=== PATIENT | male | born 1965 | race Caucasian/White ===

== ENCOUNTER → 2016-05-15 | Outpatient (REF) | payer OTHER | LOC: M SFHCLERA 15:50 | PROVIDERS: ATTEND Physician Assistant | DX: J86.9 Pyothorax without fistula (principal) ==

== ENCOUNTER → 2020-06-05 | Outpatient (CLI) | payer OTHER ==
[~2020-06-05] MED LIST: LISI-538; ROSU40TA4
== END ==
LOC: M LABSMTC 09:49
PROVIDERS: ATTEND Anesthesiology
DX: Z01.812 Encounter for preprocedural laboratory examination (principal); Z20.822 Contact with and (suspected) exposure to COVID-19

== ENCOUNTER 2020-06-10 09:47 | Day surgery (SDC) | payer OTHER ==
[~2020-06-10] VITALS: Ht 175.3 cm; Wt 96.6 kg
[~2020-06-10 09:47] MED LIST changes: +LIDOCAINE 2% 100MG/5ML SDV (FOR ANES.) As Ordered ONE; -LISI-538; +LISI20TA33; +NS 1,000 ML IV ONE; +propofoL 500 MG/50 ML VIAL As Ordered ONE
--- OUTSIDE RECORDS SUMMARY | 2020-06-10 09:52 | CCD | Continuity of Care Document ---
Author Author Xander RIGGINS M.D. Organization Unknown Address [address] [place] [address] Phone [phone] Care Team Providers Care Radiologist Diagnostic Name Role Phone Niranjan Sigala AUTM [phone] Problems Active Problems Provider Date Chronic neck pain Daly Riggins M.D. Onset: 06/01/2020 Cervical radiculopathy Daly Riggins M.D. Onset: 06/01/2020 Carpal tunnel syndrome Daly Riggins M.D. Onset: 06/01/2020 Social History Type Date Description Comments Sex Unknown Tobacco Use Start: Unknown Patient has never smoked Allergies, Adverse Reactions, Alerts Active Allergies Reaction Severity Comments Date Radioactive Iodine Medications Active Medications SIG Qnty Indications Ordering Provide r Date Tylenol 8 Hour 650mg Tablets ER Daly Riggins M.D. 06/01/2020 Immunizations Description No Information Available Vital Signs Date Vital Result Comment 06/02/2020 8:24am BP Systolic 120 mmHg BP Diastolic 80 mmHg Heart Rate 72 /min Height 69 inches 5'9" Weight 212.00 lb BMI (Body Mass Index) 31.3 kg/m2 [place] Body Weight 160 lb Results Description No Information Available Procedures Description No Information Available Medical Devices Description No Information Available Encounters Description No Information Available Assessments Description No Information Available Plan of Treatment No Information Available Functional Status Description No Information Available Mental Status Description No Information Available Referrals Description No Information Available
--- OUTSIDE RECORDS SUMMARY | 2020-06-10 09:52 | CCD | Continuity of Care Document ---
Author Author Xander BRADLEY Organization Unknown Address [address] [place] [address] Phone [phone] Care Team Providers Care Program Writer Name Role Phone Randall Colon MD [facility] [phone] Problems Active Problems Provider Date Anemia Eyal Bradley M.D. Onset: 05/26/19 21 Social History Type Date Description Comments Sex Unknown ETOH Use Occasionally Tobacco Use Start: Unknown Patient has never smoked Allergies, Adverse Reactions, Alerts Description No Known Drug Allergies Medications Active Medications SIG Qnty Indications Ordering Provide r Date Suprep Bowel Prep Kit 17.5-3.13-1.6GM/177ML Solution use as directed 354ml Eyal Bradley M.D. 05/26/2020 Rosuvastatin Calcium 40mg Tablets Unknown Lisinopril 20mg Tablets Unknown Osteo Bi-Flex One Per Day Tablets Unknown Multiple Vitamin Tablets Unknown Immunizations Description No Information Available Vital Signs Date Vital Result Comment 05/26/2020 11:02am Height 69 inches 5'9" Weight 217.00 lb BP Systolic 139 mmHg BP Diastolic 87 mmHg Heart Rate 62 /min BMI (Body Mass Index) 32.0 kg/m2 Weight 98.431 kg Body Temperature 97.2 F Results Description No Information Available Procedures Description No Information Available Medical Devices Description No Information Available Encounters Type Date Location Provider Dx Diagnosis Office Visit 05/26/2020 10:15a Main Office Eyal Bradley M.D. Z 12.11 Encounter for screening for malignant neoplasm of colon D64.9 Anemia, unspecified Assessments Date Code Description Provider 05/26/2020 Z12.11 Screening for malignant neoplasm of colon Eyal Bradley M.D. 05/26/2020 D64.9 Anemia Eyal zheng M.D. Plan of Treatment Future Appointment(s):* 06/10/2020 9:00 am - Eyal Bradley M.D. at Main Office * 06/03/2020 6:30 am - [facility] at Main Office 05/26/2020 - Eyal Bradley M.D.* Z12.11 Screening for malignant neoplasm of colon* Comments:* 54 yo wm who presents for a colonoscopy/egd for anemia/screening. No c/o abdominal pain, weight loss, change in bowel habits, or rectal bleeding. No family h/o colon cancer. No h/o chest pain, or sob. Plan:1.Schedule patient for a colonoscopy + egd.2.Informed consent given to the patient.3.Pt. advised to stop aspirin,plavix, and anticoagulants at least 3 to 7 days prior to the procedure. * D64.9 Anemia* Comments:* As above. Functional Status Description No Information Available Mental Status Description No Information Available Referrals Refer to Dr Reason for Referral Status Appt Date Eyal Bradley M.D. Created [address] [place] [address] [phone] Eyal Bradley M.D. Created [address] [place] [address] [phone]
--- OUTSIDE RECORDS SUMMARY | 2020-06-10 09:52 | CCD ---
Author Author [facility] Organization [facility] Address Unknown Phone Unavailable Care Team Providers Care Packaging Engineer Name Role Phone Carmen Bradley MD Unavailable Unavailable Carmen Bradley MD Unavailable Unavailable Carmen Bradley MD Unavailable Unavailable Carmen Bradley MD Unavailable Unavailable Carmen Bradley MD Unavailable Unavailable Carmen Bradley MD Unavailable Unavailable Carmen Bradley MD Unavailable Unavailable Carmen Bradley MD Unavailable Unavailable Carmen Bradley MD Unavailable Unavailable Carmen Bradley MD Unavailable Unavailable Carmen Bradley MD Unavailable Unavailable Carmen Bradley MD Unavailable Unavailable Carmen Bradley MD Unavailable Unavailable Carmen Bradley MD Unavailable Unavailable Carmen Bradley MD Unavailable Unavailable Carmen Bradley MD Unavailable Unavailable Carmen Bradley MD Unavailable Unavailable Carmen Bradley MD Unavailable Unavailable Carmen Bradley MD Unavailable Unavailable Carmen Bradley MD Unavailable Unavailable Carmen Bradley MD Unavailable Unavailable Carmen Bradley MD Unavailable Unavailable Carmen Bradley MD Unavailable Unavailable Carmen Bradley MD Unavailable Unavailable Carmen Bradley MD Unavailable Unavailable Carmen Bradley MD Unavailable Unavailable Carmen Bradley MD Unavailable Unavailable Carmen Bradley MD Unavailable Unavailable Carmen Bradley MD Unavailable Unavailable Carmen Bradley MD Unavailable Unavailable Carmen Bradley MD Unavailable Unavailable Carmen Bradley MD Unavailable Unavailable Carmen Bradley MD Unavailable Unavailable Mirna, S Eyal BRIAN Unavailable Unavailable Mirna, S Eyal BRIAN Unavailable Unavailable Mirna, S Eyal BRIAN Unavailable Unavailable Mirna, S Eyal BRIAN Unavailable Unavailable Mirna, S Eyal BRIAN Unavailable Unavailable Mirna, S Eyal BRIAN Unavailable Unavailable Mirna, S Eyal BRIAN Unavailable Unavailable Mirna, S Eyal BRIAN Unavailable Unavailable Mirna, S Eyal BRIAN Unavailable Unavailable Mirna, S Eyal BRIAN Unavailable Unavailable Mirna, S Eyal BRIAN Unavailable Unavailable Mirna, S Eyal BRIAN Unavailable Unavailable Mirna, S Eyal BRIAN Unavailable Unavailable Mirna, S Eyal BRIAN Unavailable Unavailable Mirna, S Eyal BRIAN Unavailable Unavailable Mirna, S Eyal BRIAN Unavailable Unavailable Alexis, Paul Wiley MD Unavailable Unavailable Alexis, Paul Wiley MD Unavailable Unavailable Alexis, Paul Wiley MD Unavailable Unavailable AlexisPaul bernal MD Unavailable Unavailable Paul Espinoza MD Unavailable Unavailable Paul Espinoza MD Unavailable Unavailable Paul Espinoza MD Unavailable Unavailable AlexisPaul bernal MD Unavailable Unavailable AlexisPaul bernal MD Unavailable Unavailable AlexisPaul bernal MD Unavailable Unavailable AlexisPaul bernal MD Unavailable Unavailable AlexisPaul bernal MD Unavailable Unavailable AlexisPaul bernal MD Unavailable Unavailable AlexisPaul bernal MD Unavailable Unavailable AlexisPaul bernal MD Unavailable Unavailable AlexisPaul bernal MD Unavailable Unavailable AlexisPaul bernal MD Unavailable Unavailable AlexisPaul bernal MD Unavailable Unavailable AlexisPaul bernal MD Unavailable Unavailable AlexisPaul bernal MD Unavailable Unavailable AlexisPaul bernal MD Unavailable Unavailable AlexisPaul bernal MD Unavailable Unavailable AlexisPaul bernal MD Unavailable Unavailable AlexisPaul bernal MD Unavailable Unavailable Paul Espinoza MD Unavailable Unavailable AlexisPaul bernal MD Unavailable Unavailable AlexisPaul bernal MD Unavailable Unavailable AlexisPaul bernal MD Unavailable Unavailable AlexisPaul bernal MD Unavailable Unavailable AlexisPaul bernal MD Unavailable Unavailable Paul Espinoza MD Unavailable Unavailable Paul Espinoza MD Unavailable Unavailable Paul Espinoza MD Unavailable Unavailable Paul Espinoza MD Unavailable Unavailable Paul Espinoza MD Unavailable Unavailable AlexisPaul bernal MD Unavailable Unavailable AlexisPaul bernal MD Unavailable Unavailable AlexisPaul bernal MD Unavailable Unavailable Paul Espinoza MD Unavailable Unavailable Paul Espinoza MD Unavailable Unavailable AlexisPaul bernal MD Unavailable Unavailable AlexisPaul bernal MD Unavailable Unavailable AlexisPaul bernal MD Unavailable Unavailable AlexisPaul MD Unavailable Unavailable Re-disclosure Warning The records that you are about to access may contain information from federally-assisted alcohol or drug abuse programs. If such information is present, then the following federally mandated warning applies: This information has been disclosed to you from records protected by federal confidentiality rules (42 CFR part 2). The federal rules prohibit you from making any further disclosure of this information unless further disclosure is expressly permitted by the written consent of the person to whom it pertains or as otherwise permitted by 42 CFR part 2. A general authorization for the release of medical or other information is NOT sufficient for this purpose. The Federal rules restrict any use of the information to criminally investigate or prosecute any alcohol or drug abuse patient.The records that you are about to access may contain highly sensitive health information, the redisclosure of which is protected by Article 27-F of the [facility] Public Health law. If you continue you may have access to information: Regarding HIV / AIDS; Provided by facilities licensed or operated by the [facility] Office of Mental Health; or Provided by the [facility] Office for People With Developmental Disabilities. If such information is present, then the following [facility] mandated warning applies: This information has been disclosed to you from confidential records which are protected by state law. State law prohibits you from making any further disclosure of this information without the specific written consent of the person to whom it pertains, or as otherwise permitted by law. Any unauthorized further disclosure in violation of state law may result in a fine or alf sentence or both. A general authorization for the release of medical or other information is NOT sufficient authorization for further disc losure. Encounters Encounter Providers Location Date Indications Data Source(s ) Outpatient Attender: Eyal Bradley MD Main Office 05/26/2020 09:15:00 AM EST [facility] ([facility]) [address], [facility] [address] 02/01/2020 12:00:00 AM EDT eCW1 (Critical access hospital) Preadmit Attender: Saurabh Espinoza MD ED-SDCSDC 08/19/2019 08:0 0:00 AM EDT SCREENING COLONOSCOPY [facility] SCREENING COLONOSCOPY Outpatient Attender: Saurabh Espinoza MD [id number] 07/04 03:42:00 PM EDT - 07/16/2019 03:43:00 PM EDT [facility] al Patient discharged. Medications Medication Brand Name Start Date Product Form Dose Route Admi nistrative Instructions Pharmacy Instructions Status Indications Reaction Description Data Source(s) 8 HR Acetaminophen 650 MG Extended Release Oral Tablet [Tyle nol] Tylenol 8 Hour 06/01/2020 12:00:00 AM EST active [facility] ([facility], ) Suprep Bowel Prep Kit Suprep Bowel Prep Kit 05/26/2020 12:00:00 AM EST active [facility] ([facility]) Insurance Providers Payer name Policy type / Coverage type Policy ID Covered green party ID Covered green party's relationship to perez Policy Perez Plan Information 'S ADMINISTRATION [id number] SP [id number] [facility] [id number] SP [id number] [facility] [id number] S [id number] [facility] [id number] S [id number] [facility] [id number] S [id number] 5 ANSI-Commercial [id number] PR [facility] P [id number] S [id number] PR CB- [place] P UNAVAILABLE S UNAVAILABLE Problems, Conditions, and Diagnoses Code Display Name Description Problem Type Effective Dates Data Source(s) 95783059 Carpal tunnel syndrome Carpal tunnel syndrome Problem 06/01/2020 12:00:00 AM EST [facility] ([facility], ) [id number] Cervical radiculopathy Cervical radiculopathy Problem 06/01/2020 12:00:00 AM EST [facility] ([facility], ) [id number] Chronic neck pain Chronic neck pain Problem 05/07 12:00:00 AM EST [facility] ([facility], ) 124757303 Anemia Anemia Problem 05/26/2020 12:00:00 AM ES T [facility] ([facility]) Z12.11 Encounter for screening for malignant ne oplasm of colon ENCOUNTER FOR SCREENING FOR MALIGNANT NEOPLASM OF COLON Diagnosis 07/16/2019 03:42:0 0 PM EDT [facility] Surgeries/Procedures Procedure Description Date Indications Data Source(s) OFFICE OUTPATIENT VISIT 10 MINUTES OFFICE/OUTPATIENT VISIT E ST 07/16/2019 12:00:00 AM EDT [facility] Results ID Date Data Source [id number] 06/05/2020 10:45:00 AM EST [facility] Name Value Range Interpretation Code Description Data Eloina rce(s) Supporting Document(s) SARS coronavirus 2 RNA Not Detected [facility] [place] This lab was ordered by [facility] and reported by [facility]. Procedure Vital Signs ID Date Data Source UNK Name Value Range Interpretation Code Description Data Source(s) [place] body weight 160 [lb_av] 160 [lb_av] [facility] T ([facility], ) Body mass index (BMI) [Ratio] 31.3 kg/m2 31.3 k g/m2 [facility] ([facility], ) Body weight 212.00 [lb_av] 212.00 [lb_av] [facility] ([facility], ) Body height 69 [in_i] 69 [in_i] [facility] ([facility], ) 5'9" Heart rate 72 /min 72 /min [facility] ([facility], ) Diastolic blood pressure 80 mm[Hg] 80 mm[Hg] [facility] ([facility], ) Systolic blood pressure 120 mm[Hg] 120 mm[Hg] [facility] ([facility], ) Body temperature 97.2 [degF] 97.2 [degF] [facility] ([facility]) Body weight 98.431 kg 98.431 kg [facility]) Body mass index (BMI) [Ratio] 32.0 kg/m2 32.0 k g/m2 [facility] ([facility]) Heart rate 62 /min 62 /min [facility]) Diastolic blood pressure 87 mm[Hg] 87 mm[Hg] [facility] ([facility]) Systolic blood pressure 139 mm[Hg] 139 mm[Hg] M [facility] ([facility]) Body weight 217.00 [lb_av] 217.00 [lb_av] [facility] ([facility]) Body height 69 [in_i] 69 [in_i] [facility]) 5'9"
--- NOTE | 2020-06-10 11:52 | ROOR ---
Patient Name: Xander Pulido Procedure Date: 06/10/2020 11:29 AM Date of : 1965 Age: 54 Room: [facility] Gender: Male Note Status: Finalized Procedure: Upper Endoscopy + Biopsies Indications: Unexplained iron deficiency anemia Providers: Eyal Bradley MD Referring MD: [facility]IRE[facility], Admin. Requesting Provider: Medicines: Monitored Anesthesia Care Complications: No immediate complications. Procedure: Pre-Anesthesia Assessment: - The heart rate, respiratory rate, oxygen saturations, blood pressure, adequacy of pulmonary ventilation, and response to care were monitored throughout the procedure. The Endoscope was introduced through the mouth, and advanced to the second part of duodenum. The upper GI endoscopy was accomplished without difficulty. The patient tolerated the procedure well. Findings: The Z-line was regular and was found 35 cm from the incisors. Multiple biopsies were obtained with cold forceps for evaluation to rule out Delgado's Esophagus randomly at the gastroesophageal junction. A medium-sized hiatal hernia was present. No other significant abnormalities were identified in a careful examination of the stomach. Biopsies were taken with a cold forceps in the gastric antrum for Helicobacter pylori testing. The exam of the duodenum was otherwise normal. Biopsies for histology were taken with a cold forceps in the first portion of the duodenum for evaluation of celiac disease. The exam was otherwise without abnormality. Impression: - Z-line regular, 35 cm from the incisors. - Medium-sized hiatal hernia. - The examination was otherwise normal. - Multiple biopsies were obtained at the gastroesophageal junction. - Biopsies were taken with a cold forceps for Helicobacter pylori testing. - Biopsies were taken with a cold forceps for evaluation of celiac disease. - The examination was otherwise normal. Recommendation: - Patient has a contact number available for emergencies. The signs and symptoms of potential delayed complications were discussed with the patient. Return to normal activities tomorrow. Written discharge instructions were provided to the patient. - High fiber diet. - Discharge patient to home. - Follow an antireflux regimen. - Continue present medications. - Await pathology results. - Telephone GI clinic for pathology results in 1 week. - Return to referring physician. - The findings and recommendations were discussed with the patient. Procedure Code(s): --- Professional --- 52837, Esophagogastroduodenoscopy, flexible, transoral; with biopsy, single or multiple Diagnosis Code(s): --- Professional --- K44.9, Diaphragmatic hernia without obstruction or gangrene D50.9, Iron deficiency anemia, unspecified CPT copyright 2019 [employer]. All rights reserved. The codes documented in this report are preliminary and upon fiberglass tube molder review may be revised to meet current compliance requirements. Eyal Bradley MD Eyal Bradley MD 06/10/2020 11:52:07 AM Electronically signed by Eyal Bradley MD Number of Addenda: 0 Note Initiated On: 06/10/2020 11:29 AM Estimated Blood Loss: Estimated blood loss: none.
--- NOTE | 2020-06-10 12:05 | ROOR ---
Patient Name: Xander Pulido Procedure Date: 06/10/2020 11:30 AM Date of : 1965 Age: 54 Room: [facility] Gender: Male Note Status: Finalized Procedure: Total Colonoscopy to Cecum + ileoscopy Indications: Screening for colorectal malignant neoplasm Providers: Eyal Bradley MD Referring MD: [facility], Admin. Requesting Provider: Medicines: Monitored Anesthesia Care Complications: No immediate complications. Procedure: Pre-Anesthesia Assessment: - The heart rate, respiratory rate, oxygen saturations, blood pressure, adequacy of pulmonary ventilation, and response to care were monitored throughout the procedure. The Colonoscope was introduced through the anus and advanced to the cecum, identified by appendiceal orifice and ileocecal valve. The colonoscopy was performed without difficulty. The patient tolerated the procedure well. The quality of the bowel preparation was excellent. Findings: The perianal and digital rectal examinations were normal. Non-bleeding internal hemorrhoids were found during retroflexion. The hemorrhoids were small and Grade I (internal hemorrhoids that do not prolapse). Scattered small-mouthed diverticula were found in the recto-sigmoid colon, sigmoid colon and descending colon. The exam was otherwise without abnormality on direct and retroflexion views. The terminal ileum appeared normal. Impression: - Non-bleeding internal hemorrhoids. - Diverticulosis in the recto-sigmoid colon, in the sigmoid colon and in the descending colon. - The examination was otherwise normal on direct and retroflexion views. - The examined portion of the ileum was normal. - No specimens collected. - The exam was otherwise normal to the cecum. Recommendation: - Patient has a contact number available for emergencies. The signs and symptoms of potential delayed complications were discussed with the patient. Return to normal activities tomorrow. Written discharge instructions were provided to the patient. - High fiber diet. - Discharge patient to home. - Continue present medications. - Repeat colonoscopy in 10 years for screening purposes. - Return to referring physician. - The findings and recommendations were discussed with the patient. Procedure Code(s): --- Professional --- 66429, Colonoscopy, flexible; diagnostic, including collection of specimen(s) by brushing or washing, when performed (separate procedure) Diagnosis Code(s): --- Professional --- Z12.11, Encounter for screening for malignant neoplasm of colon K64.0, First degree hemorrhoids K57.30, Diverticulosis of large intestine without perforation or abscess without bleeding CPT copyright 2019 [employer]. All rights reserved. The codes documented in this report are preliminary and upon cigarette machine operator review may be revised to meet current compliance requirements. Eyal Bradley MD Eyal Bradley MD 06/10/2020 12:04:47 PM Electronically signed by Eyal Bradley MD Number of Addenda: 0 Note Initiated On: 06/10/2020 11:30 AM Estimated Blood Loss: Estimated blood loss: none.
[2020-06-10 12:30] VITALS: BP 142/96
== END 2020-06-10 12:34 | disposition home or self-care (01) ==
LOC: M OPP 09:47
PROVIDERS: ATTEND Internal Medicine Gastroenterology
DX: Z12.11 Encounter for screening for malignant neoplasm of colon (principal); D50.9 Iron deficiency anemia, unspecified; K64.0 First degree hemorrhoids; K57.30 Diverticulosis of large intestine without perforation or abscess without bleeding; D13.1 Benign neoplasm of stomach; D13.39 Benign neoplasm of other parts of small intestine; K44.9 Diaphragmatic hernia without obstruction or gangrene; I10 Essential (primary) hypertension; E78.5 Hyperlipidemia, unspecified; Z88.3 Allergy status to other anti-infective agents; Z91.013 Allergy to seafood; Z79.899 Other long term (current) drug therapy
CPT/HCPCS: 43239; 88305; G0121

== ENCOUNTER → 2021-04-24 | Outpatient (REF) | payer OTHER ==
[~2021-04-24] MED LIST changes: -LIDOCAINE 2% 100MG/5ML SDV (FOR ANES.) As Ordered ONE; -NS 1,000 ML IV ONE; -propofoL 500 MG/50 ML VIAL As Ordered ONE
[2021-04-24 17:55] LABS: APPEARANCE, URINE CLEAR (CLEAR); BACTERIA, URINE AUTO NEGATIVE (NEGATIVE); BILIRUBIN, URINE AUTO NEGATIVE (NEGATIVE); BLOOD, URINE BLOOD NEGATIVE (NEGATIVE); COLOR, URINE YELLOW (YELLOW); GLUCOSE, URINE (UA) AUTO NEGATIVE (NEGATIVE); KETONE, URINE AUTO NEGATIVE (NEGATIVE); LEUKOCYTE ESTERASE, URINE AUTO NEGATIVE (NEGATIVE); MUCUS, URINE SMALL (NEGATIVE); NITRITE, URINE AUTO NEGATIVE (NEGATIVE); PROTEIN, URINE AUTO NEGATIVE (NEGATIVE); RBC, URINE AUTO 1 /HPF (0-3); SPECIFIC GRAVITY URINE AUTO 1.017 (1.002-1.035); SQUAMOUS EPITHELIAL CELL UR AU 0 /HPF (0-6); UROBILINOGEN, URINE AUTO 0.2 mg/dL (0.0-2.0); WBC, URINE AUTO 0 /HPF (0-3)
== END ==
LOC: M SMT 16:39
PROVIDERS: ATTEND Physician Assistant
DX: R97.20 Elevated prostate specific antigen [PSA] (principal)
CPT/HCPCS: 81001; 87086; G0463

== ENCOUNTER → 2023-09-10 | Outpatient (CLI) | payer OTHER ==
[~2023-09-10] MED LIST changes: -ROSU40TA4; +ROSU40TA63
== END ==
LOC: M SLEEP 20:00
PROVIDERS: ATTEND Internal Medicine
DX: R06.83 Snoring (principal)